=== PATIENT | male | born 1955 | race Caucasian/White ===

== ENCOUNTER 2023-10-30 00:16 | Emergency (ER) | payer OTHER, BC ==
[~2023-10-30] VITALS: Ht 177.8 cm; Wt 67.7 kg
[2023-10-30 00:21] VITALS: BP 147/85; PULSE 75; RESP 14; TEMP 97.9; O2SAT 98
== END 2023-10-30 01:15 | disposition home or self-care (01) ==
LOC: ER 00:17
DX: I83.893 Varicose veins of bilateral lower extremities with other complications (principal); Z86.718 Personal history of other venous thrombosis and embolism
CPT/HCPCS: 99281